=== PATIENT | female | born 1970 | race Caucasian/White ===

== ENCOUNTER 2021-07-26 13:01 | Emergency (ER) | payer BC ==
[~2021-07-26] VITALS: Ht 157.5 cm; Wt 83.9 kg
== END 2021-07-26 17:00 | disposition home or self-care (01) ==
LOC: ER1 13:01
DX: U07.1 COVID-19 (principal); I10 Essential (primary) hypertension; Z85.3 Personal history of malignant neoplasm of breast
CPT/HCPCS: 99283